=== PATIENT | male | born 1955 | race Caucasian/White ===

== ENCOUNTER 2017-06-08 20:32 | Inpatient (IN) | payer OTHER ==
[~2017-06-08] VITALS: Ht 165.1 cm; Wt 81.7 kg
[~2017-06-08 20:32] MED LIST: BACLOFEN20 MG PO; CLOPIDOGREL75 M1 PO; COLACE100 MG PO; ENALAPRIL MALEAT5 MG PO; LORAZEPAM2 MG PO; LOTRIMIN AF1% TOP; METOPROLOL TART25 M1 PO; MONTELUKAST SOD10 M1 PO; NITROSTAT0.4 MG SL; OMEPRAZOLE DR20 M1 PO; SIMVASTATIN40 M1 PO; SYMBICORT1 AE2 INH; VENTOLIN H0.09 MG/A1 INH; [UNRECOGNIZED DRUG - CODE] PO
[2017-06-08 22:40] LABS: CARBON DIOXIDE 28.3 mmol/L (21-32); CHLORIDE SERUM 101 mmol/L (98-107); CREATININE SERUM 1.1 mg/dL (0.7-1.3); GFR1 > 60 mL/min; GLUCOSE SERUM 87 mg/dL (74-106); POTASSIUM SERUM 3.8 mmol/L (3.5-5.1); SODIUM SERUM 136 mmol/L (136-145)
[2017-06-08 22:43] LABS: BASOPHIL % 0.5 % (0-2); PLATELET COUNT 259 x10^3mcL (130-400)
[2017-06-08 22:44] LABS: ALBUMIN 3.8 g/dL (3.4-5.0); ALKALINE PHOSPHATASE 55 U/L (46-116); ALT/SGPT 30 U/L (16-63); AST/SGOT 24 U/L (15-37); BILIRUBIN TOTAL 0.37 mg/dL (0.20-1.00); LIPASE 273 IU/L (73-393); MAGNESIUM 2.2 mg/dL (1.8-2.4); RED CELL DISTRIBUTION WIDTH 16.1 % (11.5-14.5); TOTAL PROTEIN, SERUM 8.2 g/dL (6.4-8.2)
[2017-06-08 23:32] LABS: microscopic required? NO
[2017-06-08 23:58] LABS: urine erythrocyte NEGATIVE (NEGATIVE)
[2017-06-09] VITALS (7 sets, daily range): BP systolic 101–128; BP diastolic 68–83
[2017-06-09] MEDS ORDERED: OMEPRAZOLE40 M1 PO (00:34)
[2017-06-09] MEDS ORDERED: METOPROLOL TART50 MG PO (00:34)
[2017-06-09] MEDS ORDERED: FINASTERIDE5 M1 PO (00:35)
[2017-06-09] MEDS ORDERED: ASPIRIN PO (00:35)
[2017-06-09 01:52] LABS: PHOSPHOROUS 3.2 mg/dL (2.5-4.9)
[2017-06-09 01:53] LABS: CHOLESTEROL/HDL RATIO 1.9
[2017-06-09 02:01] LABS: FREE T4 0.98 ng/dL (0.76-1.46); T4(THYROXINE) 6.4 ug/dL (4.7-13.3)
[2017-06-09 03:09] LABS: T3 TOTAL 0.83 ng/mL
[2017-06-09 04:42] LABS: AMPHETAMINE QUAL UR NONE DETECTED (NEG <=1000)
[2017-06-09 06:30] LABS: BASOPHIL % 0.5 % (0-2); PLATELET COUNT 219 x10^3mcL (130-400)
[2017-06-09 06:39] LABS: RED CELL DISTRIBUTION WIDTH 15.8 % (11.5-14.5)
[2017-06-09 06:43] LABS: CARBON DIOXIDE 25.8 mmol/L (21-32); CHLORIDE SERUM 106 mmol/L (98-107); GFR1 > 60 mL/min; GLUCOSE SERUM 99 mg/dL (74-106); POTASSIUM SERUM 3.8 mmol/L (3.5-5.1); SODIUM SERUM 140 mmol/L (136-145)
[2017-06-10 05:15] VITALS: BP 117/75
[2017-06-10 06:32] LABS: CALCIUM 8.4 mg/dL (8.5-10.1); CARBON DIOXIDE 24.4 mmol/L (21-32); CHLORIDE SERUM 104 mmol/L (98-107); CREATININE SERUM 0.9 mg/dL (0.7-1.3); GFR1 > 60 mL/min; GLUCOSE SERUM 89 mg/dL (74-106); PHOSPHOROUS 4.1 mg/dL (2.5-4.9); POTASSIUM SERUM 3.4 mmol/L (3.5-5.1); SODIUM SERUM 139 mmol/L (136-145)
[2017-06-10 06:34] LABS: BASOPHIL % 0.5 % (0-2); PLATELET COUNT 218 x10^3mcL (130-400)
[2017-06-10 06:39] LABS: RED CELL DISTRIBUTION WIDTH 16.1 % (11.5-14.5)
[2017-06-10 07:32] VITALS: BP 125/77
[2017-06-10 11:38] LABS: TOTAL IRON BINDING CAPACITY 358 ug/dL (250-450)
[2017-06-10 11:40] LABS: IRON 18 ug/dL (65-170)
[2017-06-10 11:56] LABS: RED BLOOD CELLS 3.64 M/mm3 (4.52-5.90)
[2017-06-10 14:58] VITALS: BP 114/71
[2017-06-10 16:51] VITALS: BP 106/72
[2017-06-10 21:23] VITALS: BP 114/61
[2017-06-11 06:14] VITALS: BP 125/83
[2017-06-11 06:20] LABS: CALCIUM 8.8 mg/dL (8.5-10.1); CARBON DIOXIDE 24.8 mmol/L (21-32); CHLORIDE SERUM 104 mmol/L (98-107); CREATININE SERUM 0.9 mg/dL (0.7-1.3); GFR1 > 60 mL/min; GLUCOSE SERUM 92 mg/dL (74-106); MAGNESIUM 2.1 mg/dL (1.8-2.4); PHOSPHOROUS 4.4 mg/dL (2.5-4.9); POTASSIUM SERUM 3.9 mmol/L (3.5-5.1); SODIUM SERUM 138 mmol/L (136-145)
[2017-06-11 06:49] LABS: BASOPHIL % 0.4 % (0-2); PLATELET COUNT 262 x10^3mcL (130-400); RED CELL DISTRIBUTION WIDTH 15.9 % (11.5-14.5)
[2017-06-11 08:49] VITALS: BP 121/74
[2017-06-11] MEDS ORDERED: LEVAQUIN750 MG PO (10:07)
[2017-06-11] MEDS ORDERED: CLEOCIN HCL300 MG PO (10:09)
[2017-06-11] MEDS ORDERED: LAC PO (10:10)
[2017-06-11 10:36] VITALS: BP 125/83
[2017-06-11] MEDS ORDERED: METFORMIN HCL500 MG PO (12:23)
[2017-06-11] MEDS ORDERED: BLOOD GLUCOSE1 EACH MC (12:29)
[2017-06-11] MEDS ORDERED: ACCU-CHEK FAST1 EAC1 MC (12:33)
[2017-06-11 13:13] VITALS: BP 114/77
== END 2017-06-11 14:01 | disposition home or self-care (01) | DRG 137 ==
LOC: ED 20:32 → DU 06-09 00:37
PROVIDERS: Emergency Medicine; Family Medicine; ADMIT Family Medicine Sports Medicine
DX: J69.0 Pneumonitis due to inhalation of food and vomit (principal); I48.92 Unspecified atrial flutter; I10 Essential (primary) hypertension; J09.X2 Influenza due to identified novel influenza A virus with other respiratory manifestations; E11.9 Type 2 diabetes mellitus without complications; D64.9 Anemia, unspecified; I25.10 Atherosclerotic heart disease of native coronary artery without angina pectoris; K21.9 Gastro-esophageal reflux disease without esophagitis; N40.0 Benign prostatic hyperplasia without lower urinary tract symptoms; F41.9 Anxiety disorder, unspecified; I25.2 Old myocardial infarction; Z95.5 Presence of coronary angioplasty implant and graft; Z88.3 Allergy status to other anti-infective agents; E78.5 Hyperlipidemia, unspecified; M10.9 Gout, unspecified; M54.9 Dorsalgia, unspecified; E66.9 Obesity, unspecified; Z68.30 Body mass index [BMI] 30.0-30.9, adult; E87.6 Hypokalemia
CPT/HCPCS: 82962; 83880; 84439; 87804; 94150; J0132; J1956; J2405; J3490; J7030; J7613; J7620; J7633; J7644; Q0092

== ENCOUNTER 2018-09-16 01:48 | Emergency (ER) | payer OTHER ==
[~2018-09-16] VITALS: Ht 165.1 cm; Wt 81.2 kg
[~2018-09-16 01:48] MED LIST changes: +ACCU-CHEK FAST1 EAC1 MC; +ASPIRIN PO; +BLOOD GLUCOSE1 EACH MC; +CLEOCIN HCL300 MG PO; +FINASTERIDE5 M1 PO; +LAC PO; +LEVAQUIN750 MG PO; +METFORMIN HCL500 MG PO; +METOPROLOL TART50 MG PO; +OMEPRAZOLE40 M1 PO
[2018-09-16 03:11] LABS: CALCIUM 8.6 mg/dL (8.5-10.1); CARBON DIOXIDE 21.4 mmol/L (21-32); CHLORIDE SERUM 104 mmol/L (98-107); GFR1 > 60 mL/min; GLUCOSE SERUM 109 mg/dL (74-106); POTASSIUM SERUM 3.8 mmol/L (3.5-5.1); SODIUM SERUM 139 mmol/L (136-145)
[2018-09-16 03:16] LABS: ALBUMIN 3.9 g/dL (3.4-5.0); ALKALINE PHOSPHATASE 59 U/L (46-116); ALT/SGPT 30 U/L (16-63); AST/SGOT 21 U/L (15-37); BILIRUBIN TOTAL 0.38 mg/dL (0.20-1.00); TOTAL PROTEIN, SERUM 7.3 g/dL (6.4-8.2)
[2018-09-16 03:27] LABS: BASOPHIL % 0.2 % (0-2); PLATELET COUNT 257 x10^3mcL (130-400)
[2018-09-16 05:10] VITALS: BP 107/65
== END 2018-09-16 05:13 | disposition home or self-care (01) ==
LOC: ED 01:48
PROVIDERS: Emergency Medicine
DX: J45.909 Unspecified asthma, uncomplicated (principal); I10 Essential (primary) hypertension; E11.9 Type 2 diabetes mellitus without complications; E78.00 Pure hypercholesterolemia, unspecified; F41.9 Anxiety disorder, unspecified; F32.9 Major depressive disorder, single episode, unspecified; Z95.5 Presence of coronary angioplasty implant and graft; Z91.041 Radiographic dye allergy status
CPT/HCPCS: J7030; Q0092

== ENCOUNTER 2019-10-12 16:17 | Emergency (ER) | payer OTHER ==
[~2019-10-12] VITALS: Ht 165.1 cm; Wt 78.5 kg
[2019-10-12 16:23] VITALS: BP 126/77; Ht 165.1 cm; Wt 78.5 kg
[2019-10-12 17:26] LABS: BASOPHIL % 0.2 % (0-2); PLATELET COUNT 300 x10^3mcL (130-400)
[2019-10-12 17:27] LABS: RED CELL DISTRIBUTION WIDTH 14.9 % (11.5-14.5)
[2019-10-12 17:44] LABS: ALBUMIN 4.4 g/dL (3.4-5.0); ALKALINE PHOSPHATASE 57 U/L (46-116); ALT/SGPT 35 U/L (16-63); AMYLASE 87 U/L (25-115); AST/SGOT 19 U/L (15-37); BILIRUBIN TOTAL 0.4 mg/dL (0.20-1.00); CARBON DIOXIDE 25.2 mmol/L (21-32); CHLORIDE SERUM 102 mmol/L (98-107); GFR1 > 60 mL/min; GLUCOSE SERUM 105 mg/dL (74-106); LIPASE 325 IU/L (73-393); POTASSIUM SERUM 4.2 mmol/L (3.5-5.1); SODIUM SERUM 139 mmol/L (136-145); TOTAL PROTEIN, SERUM 8.1 g/dL (6.4-8.2)
[2019-10-12 17:50] LABS: CALCIUM 9.3 mg/dL (8.5-10.1)
== END 2019-10-12 19:03 | disposition home or self-care (01) ==
LOC: ED 16:17
PROVIDERS: Emergency Medicine
DX: K59.00 Constipation, unspecified (principal); R10.31 Right lower quadrant pain; R10.32 Left lower quadrant pain
CPT/HCPCS: 36415; Q0092; Q0162

== ENCOUNTER 2019-12-27 21:57 | Emergency (ER) | payer OTHER ==
[~2019-12-27] VITALS: Ht 165.1 cm; Wt 78.9 kg
[2019-12-27 22:08] VITALS: Ht 165.1 cm; Wt 78.9 kg
[2019-12-28 00:11] VITALS: BP 110/76
== END 2019-12-28 00:11 | disposition home or self-care (01) ==
LOC: ED 21:57
DX: M54.5 Low back pain (principal); M25.552 Pain in left hip; I10 Essential (primary) hypertension; E11.9 Type 2 diabetes mellitus without complications; E78.00 Pure hypercholesterolemia, unspecified
CPT/HCPCS: Q0092

== ENCOUNTER 2020-09-22 03:49 | Emergency (ER) | payer OTHER ==
[~2020-09-22] VITALS: Ht 167.6 cm; Wt 80.5 kg
[2020-09-22 03:59] VITALS: Ht 167.6 cm; Wt 80.5 kg
[2020-09-22 04:47] LABS: BASOPHIL % 0.9 % (0.2-1.5); PLATELET COUNT 279 x10^3mcL (152-348)
[2020-09-22 04:48] LABS: RED CELL DISTRIBUTION WIDTH 14.7 % (12.1-16.2)
[2020-09-22 04:58] LABS: CALCIUM 9.1 mg/dL (8.5-10.1); CARBON DIOXIDE 25.5 mmol/L (21-32); CHLORIDE SERUM 103 mmol/L (98-107); CREATININE SERUM 1.1 mg/dL (0.7-1.3); GFR1 > 60 mL/min; GLUCOSE SERUM 96 mg/dL (74-106); POTASSIUM SERUM 4.9 mmol/L (3.5-5.1); SODIUM SERUM 137 mmol/L (136-145)
[2020-09-22 05:08] LABS: ALBUMIN 4.1 g/dL (3.4-5.0); ALKALINE PHOSPHATASE 59 U/L (46-116); ALT/SGPT 30 U/L (16-63); AST/SGOT 18 U/L (15-37); BILIRUBIN TOTAL 0.4 mg/dL (0.20-1.00); LIPASE 281 IU/L (73-393); TOTAL PROTEIN, SERUM 7.7 g/dL (6.4-8.2)
[2020-09-22] MEDS ORDERED: SENNA8.6 M2 PO (05:32)
[2020-09-22 05:49] VITALS: BP 111/80
== END 2020-09-22 05:49 | disposition home or self-care (01) ==
LOC: ED 03:49
PROVIDERS: Emergency Medicine
DX: K58.9 Irritable bowel syndrome, unspecified (principal); J45.909 Unspecified asthma, uncomplicated; I10 Essential (primary) hypertension; E11.9 Type 2 diabetes mellitus without complications; I25.2 Old myocardial infarction; E78.00 Pure hypercholesterolemia, unspecified